=== PATIENT | male | born 1990 | race Caucasian/White ===

== ENCOUNTER 2018-12-24 17:56 | Emergency (ER) | payer SELFPAY ==
[2018-12-24 18:12] VITALS: BP 173/107
[2018-12-24] MEDS ORDERED: BENZONATATE 100 MG CAPSULE PO STA (18:37)
[2018-12-24] MEDS ORDERED: DOXYCYCLINE 100 MG TABLET PO STA (18:37)
[2018-12-24] MEDS ORDERED: predniSONE 20 MG TABLET PO STA (18:37)
--- NOTE | 2018-12-24 18:39 | ED Physician Documentation ---
PD HPI DYSPNEA - Stated complaint Stated Complaint: SOA - Chief complaint Chief Complaint: Resp - History obtained from History obtained from: Patient (He is been sick for a week. It started with cough and runny nose. He was getting much better but acutely got worse again today with productive cough, chills, and shortness of breath. He denies a history of adult asthma but it sounds like he had childhood asthma. No measured fevers. He does smoke.) Review of Systems Constitutional: reports: Chills Nose: reports: Rhinorrhea / runny nose Throat: reports: Sore throat Respiratory: reports: Dyspnea, Cough PD PAST MEDICAL HISTORY - Present Medications Home Medications: Ambulatory Orders Medication Instructions Recorded Confirmed Albuterol Sulf [Ventolin Hfa 1 - 2 puffs INH Q4HR PRN #1 inhaler 12/24/18 Inhaler] Benzonatate [Tessalon Perle] 100 - 200 mg PO TID PRN #30 capsule 12/24/18 Doxycycline Hyclate 100 mg PO BID #20 capsule 12/24/18 predniSONE [Deltasone] 60 mg PO DAILY 5 Days #15 tablet 12/24/18 PD ED PE NORMAL - Vitals Vital signs reviewed: Yes - General General: Alert and oriented X 3, No acute distress - HEENT HEENT: PERRL, EOMI - Neck Neck: Supple, no meningeal sign, No bony TTP - Cardiac Cardiac: RRR, No murmur - Respiratory Respiratory: No respiratory distress, Other (Rhonchorous at the bases, mild expiratory wheezes) - Abdomen Abdomen: Non tender - Extremities Extremities: No edema, No calf tenderness / cord - Neuro Neuro: Alert and oriented X 3, Normal speech Results - Vitals Vitals: Vital Signs - 24 hr 12/24/18 18:08 Temperature 36.1 C L Heart Rate 66 Respiratory 18 Rate Blood Pressure 173/107 H O2 Saturation 99 Oxygen O2 Source Room air Departure - Departure Disposition: 01 Home, Self Care Clinical Impression: Bronchitis Condition: Good Record reviewed to determine appropriate education?: Yes Instructions: ED Bronchitis Asthmatic Prescriptions: Albuterol Sulf [Ventolin Hfa Inhaler] 1 - 2 puffs INH Q4HR PRN #1 inhaler PRN Reason: Shortness Of Air/Wheezing Benzonatate [Tessalon Perle] 100 - 200 mg PO TID PRN #30 capsule PRN Reason: Cough Doxycycline Hyclate 100 mg PO BID #20 capsule predniSONE [Deltasone] 60 mg PO DAILY 5 Days #15 tablet Comments: Call your doctor to arrange a follow-up appointment, make the next available appointment. In the interim, return anytime if worse or if new symptoms develop. Your blood pressure was elevated today on check into the emergency department. This does not mean that you have hypertension, it is a common phenomenon to come to the emergency department and have elevated blood pressure. I recommend that you see your primary care physician within the week to have it rechecked when you are feeling better.
--- NOTE | 2018-12-24 18:42 | XRAY Report ---
Reason: cough, SOA Procedure Date: 12/24/2018 Accession Number: [id number] / [id number] Procedure: XR - Chest 2 View X-Ray CPT Code: 91954 Final Report FULL RESULT: EXAM: CHEST RADIOGRAPHY EXAM DATE: 12/24/2018 06:18 PM. CLINICAL HISTORY: Cough, SOA. COMPARISON: 07/28/2009 12:59 PM. TECHNIQUE: 2 views. FINDINGS: Lungs/Pleura: No focal opacities evident. No pleural effusion. No pneumothorax. Normal volumes. Mediastinum: Heart and mediastinal contours are unremarkable. Other: None. IMPRESSION: Negative chest RADIA
== END 2018-12-24 18:49 | disposition home or self-care (01) ==
LOC: ED 17:56
DX: J40 Bronchitis, not specified as acute or chronic (principal); R03.0 Elevated blood-pressure reading, without diagnosis of hypertension; F17.200 Nicotine dependence, unspecified, uncomplicated
CPT/HCPCS: 71046; 99284; A9270; J7512